=== PATIENT | male | born 1960 | race Two or more races ===

== ENCOUNTER 2021-06-30 10:59 | Inpatient (IN) | payer BC, OTHER ==
[~2021-06-30] VITALS: Ht 185.4 cm; Wt 96.7 kg
[2021-06-30] VITALS (7 sets, daily range): BP systolic 114–131; BP diastolic 84–98
[2021-06-30 11:45] LABS: Basophils # (auto) 0 10 ^3/uL (0-0.2); Basophils % (auto) 0.2 % (0.0-2.0); Eosinophils # (auto) 0 10 ^3/uL (0-0.8); Eosinophils % (auto) 0.2 % (0.0-7.0); Hematocrit 42.8 % (41.0-53.0); Hemoglobin 14.3 g/dL (13.5-17.5); Lymphocytes # (auto) 0.8 10 ^3/uL (0.4-5.4); Lymphocytes % (auto) 7.6 % (10.0-50.0); Mean Corpuscular Hemoglobin 28.5 pg (28.0-32.0); Mean Corpuscular Hgb Conc. 33.5 g/dL (32.0-36.0); Monocytes # (auto) 0.3 10 ^3/uL (0-1.3); Monocytes % (auto) 2.5 % (0.0-12.0); Neutrophils # (auto) 9.3 10 ^3/uL (1.6-8.6); Neutrophils % (auto) 89.5 % (37.0-80.0); Red Blood Cells 5.03 10^6/uL (4.5-5.90); Red Cell Distribution Width 14.3 % (11.8-14.3); White Blood Cell 10.4 10^3/uL (4.4-10.8)
[2021-06-30] MEDS ORDERED: ATROPINE SULF 1 MG/10ml SYR ONE (11:45)
[2021-06-30] MEDS: HEPARIN SODIUM (PORCINE) 5000 UNITS/ML 1ML VIAL IV ONE ×2 (11:46→11:56)
[2021-06-30] MEDS ORDERED: EPINEPHrine HCL 1 MG/1 ML AMP ONE (11:46)
[2021-06-30] MEDS ORDERED: MIDAZOLAM HCL 2MG/2ML 2ml VIAL (1mg/ml) ONE (11:46)
[2021-06-30] MEDS ORDERED: ANGIOMAX 250 MG VIAL IV ONE (11:46)
[2021-06-30] MEDS ORDERED: SODIUM CHL 0.9% 50 ML ONE (11:46)
[2021-06-30] MEDS ORDERED: fentaNYL CITRATE 100 MCG/2 ML VL ONE (11:46)
[2021-06-30] MEDS ORDERED: IODIXANOL 320MG/ML 100ML BTL IV ONE (11:48)
[2021-06-30] MEDS ORDERED: LIDOCAINE 2%HCL (LOCAL ANESTH.) INJ 20ML MDV ONE (11:48)
[2021-06-30 12:01] LABS: Albumin 3.9 g/dL (3.4-5.0); BUN/Creatinine Ratio 17.4; Calcium 8.6 mg/dL (8.5-10.1); INR 1.01 (0.9-1.15); Partial Thromboplastin Time 25.6 sec (23.6-33.0); Potassium 3.5 mmol/L (3.5-5.1)
[2021-06-30 12:06] LABS: Bilirubin, Total 0.4 mg/dL (0.2-1.0); Total Protein 7.1 g/dL (6.4-8.2)
[2021-06-30] MEDS ORDERED: EPTIFIBATIDE INJ (2MG/ML) 10ML VIAL IV ONE (12:24)
[2021-06-30] MEDS ORDERED: TICAGRELOR 90 MG TAB ONE (12:30)
[2021-06-30] MEDS ORDERED: ASPirin 325 MG TAB ONE (12:31)
[2021-06-30] MEDS ORDERED: MORPHINE SULFATE INJECTION 2 MG/ML SYRG IV PRN (13:30)
[2021-06-30] MEDS ORDERED: NITROGLYCERIN 0.4 MG SL TAB SL PRN (13:30)
[2021-06-30] MEDS ORDERED: SOD CHL 0.45% 1,000 ML IV ONE (13:45)
[2021-06-30] MEDS ORDERED: ONDANSETRON HCL 4 MG/2 ML VIAL IV PRN (13:45)
[2021-06-30] MEDS ORDERED: HYDROcodone-ACET 5/325MG TAB PO PRN (13:45)
[2021-06-30] MEDS: TICAGRELOR 90 MG TAB PO SCH (21:56)
[2021-07-01 04:37] LABS: Urine Bacteria NONE SEEN /hpf (None Seen); Urine Blood Negative /uL (Negative); Urine Mucus FEW (None Seen); Urine WBC 1 /hpf (0 - 3)
[2021-07-01 05:04] VITALS: BP 124/88
[2021-07-01 08:00] VITALS: BP 116/80
[2021-07-01] MEDS: PANTOPRAZOLE 40 MG/10 ML VIAL INJ IV SCH (09:34)
[2021-07-01] MEDS: ASPirin 81 mg TAB PO SCH (09:34)
[2021-07-01] MEDS: TICAGRELOR 90 MG TAB PO SCH ×2 (09:35→22:09)
[2021-07-01] MEDS: ATORVASTATIN 20 MG TAB PO SCH (09:35)
[2021-07-01] MEDS: METOPROLOL SUCCINATE XL 50 MG TAB PO SCH (09:36)
[2021-07-01] MEDS ORDERED: ZOLPIDEM TARTRATE 5 MG TAB PO PRN (21:00)
[2021-07-01 21:24] VITALS: BP 144/100
[2021-07-01] MEDS ORDERED: ACETAMINOPHEN 325 MG TAB PO PRN (21:30)
[2021-07-01 22:07] LABS: Basophils # (auto) 0 10 ^3/uL (0-0.2); Basophils % (auto) 0.2 % (0.0-2.0); Eosinophils # (auto) 0 10 ^3/uL (0-0.8); Eosinophils % (auto) 0.2 % (0.0-7.0); Hematocrit 37.3 % (41.0-53.0); Hemoglobin 12.6 g/dL (13.5-17.5); Lymphocytes # (auto) 1.5 10 ^3/uL (0.4-5.4); Lymphocytes % (auto) 12.8 % (10.0-50.0); Mean Corpuscular Hemoglobin 28.2 pg (28.0-32.0); Mean Corpuscular Hgb Conc. 33.8 g/dL (32.0-36.0); Mean Corpuscular Volume 83.5 fL (80.0-100.0); Monocytes # (auto) 0.8 10 ^3/uL (0-1.3); Monocytes % (auto) 7.1 % (0.0-12.0); Neutrophils # (auto) 9.1 10 ^3/uL (1.6-8.6); Neutrophils % (auto) 79.7 % (37.0-80.0); Red Blood Cells 4.46 10^6/uL (4.5-5.90); Red Cell Distribution Width 14.5 % (11.8-14.3); White Blood Cell 11.4 10^3/uL (4.4-10.8)
[2021-07-01] MEDS: PIPERACILLIN-TAZOB 3.375GM 100 ML IV SCH (22:09)
[2021-07-01 22:48] LABS: BUN/Creatinine Ratio 18.3; Calcium 8.4 mg/dL (8.5-10.1); Potassium 3.7 mmol/L (3.5-5.1)
[2021-07-02 04:29] VITALS: BP 122/76
[2021-07-02] MEDS: PIPERACILLIN-TAZOB 3.375GM 100 ML IV SCH ×2 (06:04→14:00)
[2021-07-02 08:36] VITALS: BP 125/97
[2021-07-02] MEDS: PANTOPRAZOLE 40 MG/10 ML VIAL INJ IV SCH (08:43)
[2021-07-02] MEDS: ATORVASTATIN 20 MG TAB PO SCH (08:44)
[2021-07-02] MEDS: ASPirin 81 mg TAB PO SCH (08:44)
[2021-07-02] MEDS: METOPROLOL SUCCINATE XL 50 MG TAB PO SCH (08:44)
[2021-07-02] MEDS: TICAGRELOR 90 MG TAB PO SCH (10:00)
[2021-07-02 13:00] VITALS: BP 116/82
[2021-07-02 16:46] VITALS: BP 111/81
[2021-07-03] MEDS: PIPERACILLIN-TAZOB 3.375GM 100 ML IV SCH ×2 (08:41→14:00)
[2021-07-03 09:00] VITALS: BP 122/80
[2021-07-03] MEDS: TICAGRELOR 90 MG TAB PO SCH (10:00)
[2021-07-03] MEDS: PANTOPRAZOLE 40 MG/10 ML VIAL INJ IV SCH (10:00)
[2021-07-03] MEDS: ATORVASTATIN 20 MG TAB PO SCH (10:00)
[2021-07-03] MEDS: ASPirin 81 mg TAB PO SCH (10:00)
[2021-07-03] MEDS: METOPROLOL SUCCINATE XL 50 MG TAB PO SCH (10:00)
[2021-07-03 13:00] VITALS: BP 120/83
== END 2021-07-03 16:25 | disposition home or self-care (01) | DRG 247 ==
LOC: ER 10:59 → TELE-CENTR 13:29
PROVIDERS: ADMIT Specialist; ATTEND Specialist
PROC: 027034Z Dilation of Coronary Artery, One Artery with Drug-eluting Intraluminal Device, Percutaneous Approach (ICD-10-PCS; principal; 2021-06-30)
PROC: 4A023N7 Measurement of Cardiac Sampling and Pressure, Left Heart, Percutaneous Approach (ICD-10-PCS; 2021-06-30)
PROC: 02C03ZZ Extirpation of Matter from Coronary Artery, One Artery, Percutaneous Approach (ICD-10-PCS; 2021-06-30)
PROC: B2111ZZ Fluoroscopy of Multiple Coronary Arteries using Low Osmolar Contrast (ICD-10-PCS; 2021-06-30)
PROC: B2151ZZ Fluoroscopy of Left Heart using Low Osmolar Contrast (ICD-10-PCS; 2021-06-30)
PROC: 3E063PZ Introduction of Platelet Inhibitor into Central Artery, Percutaneous Approach (ICD-10-PCS; 2021-06-30)
PROC: B41C1ZZ Fluoroscopy of Pelvic Arteries using Low Osmolar Contrast (ICD-10-PCS; 2021-06-30)
DX: I21.19 ST elevation (STEMI) myocardial infarction involving other coronary artery of inferior wall (principal); E78.5 Hyperlipidemia, unspecified; F17.210 Nicotine dependence, cigarettes, uncomplicated; I10 Essential (primary) hypertension; I48.91 Unspecified atrial fibrillation; M10.9 Gout, unspecified; Z20.822 Contact with and (suspected) exposure to COVID-19
CPT/HCPCS: 36415; 71045; 75736; 80048; 80053; 81001; 82962; 84484; 85025; 85610; 85730; 86850; 86900; 86901; 87040; 87086; 87426; 92924; 92933; 93005; 93458; 96374; 99152; 99153; C1874; C9113; G0378; J0171; J2250; J2543; Q9967